=== PATIENT | female | born 1955 ===

== ENCOUNTER 2019-12-20 14:32 | Emergency (ER) | payer SELFPAY ==
[~2019-12-20] VITALS: Ht 162.6 cm; Wt 109.1 kg
[2019-12-20 14:36] VITALS: Ht 162.6 cm; Wt 109.1 kg
[2019-12-20 17:21] LABS: BASOPHILS 0.2 % (0-2); EOSINOPHILS 3.4 % (0-7); HEMATOCRIT 35.3 % (36.0-48.0); HEMOGLOBIN 10.4 g/dL (12-16); IMMATURE GRANULOCYTES 0.2 % (0-5); LYMPHOCYTES 22.9 % (15-50); MCH 23.4 pg (26.0-34.0); MCHC 29.5 g/dL (31.0-37.0); MCV 79.3 fL (80.0-100.0); MEAN PLATELET VOLUME 10.2 fL (7.4-10.4); MONOCYTES 9.5 % (2-11); NEUTROPHILS 63.8 % (40-80); PLATELET COUNT 459 10x3/uL (130-400); RBC 4.45 10x6/uL (4.00-5.40); RDW 18.3 % (11.5-14.5); WBC 9.3 10x3/uL (4.8-10.8)
[2019-12-20 17:35] LABS: CALCIUM 9.4 mg/dL (8.5-10.1); CARBON DIOXIDE 24.5 mmol/L (21.0-32.0); CREATININE - SERUM 1.5 mg/dL (0.6-1.3); POTASSIUM - SERUM 3.5 mmol/L (3.5-5.1)
[2019-12-20 17:46] LABS: ALBUMIN 4.1 g/dL (3.4-5.0); BILIRUBIN - TOTAL 0.29 mg/dL (0.2-1.3); PROTEIN - SERUM 8.4 g/dL (6.4-8.2)
[2019-12-20 17:52] LABS: BILIRUBIN NEGATIVE (NEGATIVE); KETONE NEGATIVE (NEGATIVE); NITRITE NEGATIVE (NEGATIVE); UROBILINOGEN NORMAL (NORMAL)
[2019-12-20 17:55] LABS: BACTERIA FEW /hpf (NONE SEEN); RED CELLS - URINE OCC /hpf (0-5); WHITE CELLS - URINE 0-5 /hpf (0-5)
[2019-12-20 18:03] VITALS: BP 123/67
[2019-12-20] MEDS ORDERED: HYDROCODON-ACE1 EAC7 PO (18:34)
[2019-12-20] MEDS ORDERED: CYCLOBENZAPRINE10 MG PO (18:34)
== END 2019-12-20 19:00 | disposition home or self-care (01) ==
LOC: D.ER 14:32
PROVIDERS: Emergency Medicine
DX: M54.9 Dorsalgia, unspecified (principal); R30.0 Dysuria; K59.00 Constipation, unspecified; R10.30 Lower abdominal pain, unspecified; E11.40 Type 2 diabetes mellitus with diabetic neuropathy, unspecified; I10 Essential (primary) hypertension; J45.909 Unspecified asthma, uncomplicated